=== PATIENT | male | born 1960 | race Caucasian/White ===

== ENCOUNTER → 2024-07-17 | Outpatient (CLI) | payer OTHER, SELFPAY ==
--- NOTE | 2024-07-17 07:52 | US_ITS ---
PROCEDURE: ABDOMEN COMPLETE REASON FOR EXAM: Hyperbilirubinemia. PROCEDURE: The liver measures 18.4 cm with increased echogenicity. Hepatopetal flow. The gallbladder is within normal limits. Negative sonographic Sparrow sign. The common bile duct lesly sures 4 mm. The visualized pancreas is within normal limits. The right kidney measures 12.9 cm. Moderate to severe hydronephrosis. Normal echogenicity. Right k idney 1.6 x 1.7 x 1.2 cm simple cyst. The left kidney measures 12.6 cm. Moderate to severe hydronephrosis. Normal echogenicity. The spleen measures 12.6 cm. The aorta and IVC are unremarkable. US/Abdomen Complete IMPRESSION: Moderate to severe bilateral hydronephrosis. Right kidney simple cyst. Hepatomegaly and hepatic steatosis. Borderline splenomegaly. Reading Location: [id number]
== END | disposition home or self-care (01) ==
PROVIDERS: PCP Family Medicine Geriatric Medicine; Referring Provider Family Medicine Geriatric Medicine; Visit Provider Family Medicine Geriatric Medicine
DX: E80.6 Other disorders of bilirubin metabolism (principal)
CPT/HCPCS: 76700

== ENCOUNTER → 2024-07-25 | Outpatient (CLI) | payer OTHER, SELFPAY ==
[2024-07-25 15:29] LABS: Anion Gap 7 (5-15); BUN 41 mg/dL (7-18); BUN/Creat Ratio 20.4 RATIO (10-20); Calcium,Total 9.4 mg/dL (8.5-10.1); Chloride 105 mmol/L (98-107); Creatinine, Serum 2.01 mg/dL (0.70-1.30); EST Glomerular Filtration Rate 36 mL/min (>60); Est Glom Filt Rate - Afr Amer 43 mL/min (>60); Glucose 324 mg/dL (74-106); Potassium 4.4 mmol/L (3.5-5.1); Sodium Level 138 mmol/L (136-145)
[2024-07-25 16:42] LABS: Hemoglobin A1c 8.8 % (3.8-5.6)
== END | disposition home or self-care (01) ==
LOC: POLAB3 14:30
PROVIDERS: PCP Family Medicine Geriatric Medicine; Visit Provider Family Medicine Geriatric Medicine
DX: E11.22 Type 2 diabetes mellitus with diabetic chronic kidney disease (principal); I10 Essential (primary) hypertension
CPT/HCPCS: 36415; 80048; 83036

== ENCOUNTER → 2024-08-02 | Outpatient (CLI) | payer OTHER, MEDICAID, SELFPAY ==
--- NOTE | 2024-08-02 09:48 | US_ITS ---
EXAM: ELASTOGRAPHY PARENCHYMA/ORGAN CLINICAL HISTORY: Fatty infiltration of the liver. COMPARISON: Comparison is made with prior study dated July 17, 2024. TECHNIQUE: Elastography was performed. FINDINGS: The mean kilobase Jesse is 9.1. The velocity is 1.74 m/sec. US/Elastography Parenchyma/Organ IMPRESSION: F2/F 3. Reading Location: [id number]
== END | disposition home or self-care (01) ==
LOC: US 09:47
PROVIDERS: PCP Family Medicine Geriatric Medicine; Referring Provider Family Medicine Geriatric Medicine; Visit Provider Family Medicine Geriatric Medicine
DX: K76.0 Fatty (change of) liver, not elsewhere classified (principal); N13.30 Unspecified hydronephrosis
CPT/HCPCS: 76981

== ENCOUNTER → 2024-08-13 | Outpatient (CLI) | payer OTHER, MEDICAID, SELFPAY ==
--- NOTE | 2024-08-13 16:33 | CT_ITS ---
PROCEDURE: ABDOMEN/PELVIS WITHOUT CONT REASON FOR EXAM: Bilateral hydronephrosis. TECHNIQUE: Abdomen and pelvis CT without intravenous contrast. COMPARISON: 07/17/2024 ultrasound. FINDINGS: Lung bases: Clear Liver: Unremarkable. Gallbladder: Contracted gallbladder. Spleen: Unremarkable. Pancreas: Unremarkable. Adrenals: Unremarkable. Kidneys: Severe bilateral hydroureteronephrosis. Bladder: Concentric urinary bladder wall thickening. Reproductive Organs: Unremarkable. Bowel: Unremarkable. Appendix: Normal. Lymph nodes: No suspicious lymph node enlargement. Vasculature: Mild atherosclerosis. Normal caliber abdominal aorta. Peritoneum / Retroperitoneum: No ascites. No free air. Bones: Normal caliber large and small bowel. Dense colonic stool. CT/Abdomen/Pelvis without Cont IMPRESSION: Severe bilateral hydroureteronephrosis. No obstructing calculus or nephrolithi asis. Concentric urinary bladder wall thickening which may be due to detrusor muscle hypertrophy or neurogenic bladder. Dense colonic stool which may suggest constipation. One or more dose reduction techniques were used (e.g., Automated exposure contr ol, adjustment of the mA and/or kV according to patient size, use of iterative reconstruction technique). Reading Location: [place] [id number]
== END | disposition home or self-care (01) ==
LOC: CT 16:32
PROVIDERS: PCP Family Medicine Geriatric Medicine; Referring Provider Family Medicine Geriatric Medicine; Visit Provider Family Medicine Geriatric Medicine
DX: K76.0 Fatty (change of) liver, not elsewhere classified (principal); N13.30 Unspecified hydronephrosis
CPT/HCPCS: 74176

== ENCOUNTER → 2024-08-22 | Outpatient (CLI) | payer OTHER, MEDICAID, SELFPAY ==
--- NOTE | 2024-08-22 14:05 | RAD_ITS ---
PROCEDURE: ABD INC DECUB AND/OR ERECT REASON FOR EXAM: Fecal impaction TECHNIQUE: Supine and upright views of the abdomen. COMPARISON: CT of the abdomen and pelvis dated 08/13/2024 FINDINGS: Bowel gas pattern is normal. No evidence of bowel obstruction. No free air. No suspicious calcifications. The bones are unremarkable. RAD/Abd Inc Decub and/or Erect IMPRESSION: Nonobstructive bowel gas pattern. Reading Location: [id number]
[2024-08-22 14:13] LABS: Absolute Lymphocyte Count 1.45 X10^3/uL (0.83-4.51); Absolute Neutrophil Count 5.7 X10^3/uL (2.0-7.7); Basophil# 0.05 X10^3/uL; Basophil% 0.6 % (0-1); Eosinophil# 0.06 X10^3/uL; Eosinophils% 0.8 % (0-5); Hematocrit 37.3 % (40-54); Lymphocyte # 1.45 X10^3/ul (0.83-4.51); Lymphocyte % 18.7 % (19-41); Mean Corp Hgb Conc 34.9 g/dL (32-36); Mean Corpuscular Hgb 28.9 pg (27.0-32.0); Mean Corpuscular Volume 82.9 fL (80-94); Mean Platelet Vol. 8.9 fl (6.2-12.0); Monocyte# 0.47 X10^3/uL; Monocyte% 6.1 % (0-10); NRBC Flagged by Analyzer 0 % (0-5); Neutrophil # 5.69 X10^3/uL (2.7-7.7); Neutrophil % 73.4 % (47-70); Platelet Count 288 K/mm3 (150-450); RBC Distribution Width CV 12.4 % (11.6-14.6); RBC Distribution Width SD 37.1 fl (35.1-43.9); White Blood Count 7.8 K/mm3 (4.4-11.0)
[2024-08-22 14:43] LABS: ALB/GLOB Ratio 1.5 RATIO (0.9-2.4); AST(SGOT) 15 U/L (<=37); Alanine Aminotransfer ALT/SGPT 19 U/L (<=46); Albumin, Serum 4.3 g/dL (3.4-4.8); Alkaline Phosphatase 63 U/L (40-129); Anion Gap 13 (5-15); BUN 29 mg/dL (4-19); BUN/Creat Ratio 16.5 RATIO (10-20); Calcium,Total 9.8 mg/dL (7.6-11.0); Carbon Dioxide 23.8 mmol/L (21.0-32.0); Chloride 103 mmol/L (98-108); Creatinine, Serum 1.76 mg/dL (0.70-1.20); EST Glomerular Filtration Rate 43 (>60); Globulin 2.9 g/dL (2.2-4.2); Glucose 251 mg/dL (70-99); Potassium 4.1 mmol/L (3.3-5.1); Protein, Total 7.2 g/dL (5.9-8.4); Sodium Level 140 mmol/L (133-145); Total Bilirubin 0.97 mg/dL (0.00-1.30)
[2024-08-22 14:48] LABS: Hemoglobin A1c 11.3 % (<=5.6)
[2024-08-22 15:02] LABS: Cholesterol 194 mg/dL (<=200); High Density Lipoprotein 40 mg/dL; Low Density Lipoprotein Calc. 107 mg/dL; Triglycerides 232 mg/dL; Very Low Density Lipoprotein 46 mg/dL (5-40); cholesterol:hdl ratio screen 4.81
== END | disposition home or self-care (01) ==
LOC: LAB 13:49
PROVIDERS: PCP Family Medicine Geriatric Medicine; Referring Provider Family Medicine Geriatric Medicine; Visit Provider Family Medicine Geriatric Medicine
DX: K56.41 Fecal impaction (principal); E11.65 Type 2 diabetes mellitus with hyperglycemia; E78.5 Hyperlipidemia, unspecified; I10 Essential (primary) hypertension
CPT/HCPCS: 36415; 74019; 80053; 80061; 83036; 84443; 85025

== ENCOUNTER → 2024-08-29 | Outpatient (CLI) | payer OTHER, MEDICAID, SELFPAY ==
[2024-08-29 15:01] LABS: Absolute Lymphocyte Count 1.38 X10^3/uL (0.83-4.51); Absolute Neutrophil Count 5.8 X10^3/uL (2.0-7.7); Basophil# 0.05 X10^3/uL; Basophil% 0.6 % (0-1); Eosinophil# 0.07 X10^3/uL; Eosinophils% 0.9 % (0-5); Hematocrit 36.9 % (40-54); Hemoglobin 12.6 g/dL (13.0-16.5); Lymphocyte # 1.38 X10^3/ul (0.83-4.51); Lymphocyte % 17.6 % (19-41); Mean Corp Hgb Conc 34.1 g/dL (32-36); Mean Corpuscular Hgb 28.3 pg (27.0-32.0); Mean Corpuscular Volume 82.7 fL (80-94); Mean Platelet Vol. 9.3 fl (6.2-12.0); Monocyte# 0.48 X10^3/uL; Monocyte% 6.1 % (0-10); NRBC Flagged by Analyzer 0 % (0-5); Neutrophil # 5.84 X10^3/uL (2.7-7.7); Neutrophil % 74.3 % (47-70); Platelet Count 266 K/mm3 (150-450); RBC Distribution Width CV 12.3 % (11.6-14.6); RBC Distribution Width SD 37.1 fl (35.1-43.9); Red Blood Count 4.46 M/mm3 (4.6-6.2); White Blood Count 7.9 K/mm3 (4.4-11.0)
[2024-08-29 15:36] LABS: Anion Gap 16 (5-15); BUN 43 mg/dL (4-19); BUN/Creat Ratio 23.5 RATIO (10-20); Calcium,Total 9.4 mg/dL (7.6-11.0); Carbon Dioxide 21.8 mmol/L (21.0-32.0); Chloride 100 mmol/L (98-108); Creatinine, Serum 1.81 mg/dL (0.70-1.20); EST Glomerular Filtration Rate 41 (>60); Glucose 381 mg/dL (70-99); Potassium 4.2 mmol/L (3.3-5.1); Sodium Level 137 mmol/L (133-145)
[2024-08-29 19:39] LABS: Hemoglobin A1c 11.4 % (<=5.6)
== END | disposition home or self-care (01) ==
LOC: POLAB3 14:44
PROVIDERS: PCP Family Medicine Geriatric Medicine; Visit Provider Family Medicine Geriatric Medicine
DX: E11.65 Type 2 diabetes mellitus with hyperglycemia (principal); I10 Essential (primary) hypertension
CPT/HCPCS: 36415; 80048; 83036; 85025

== ENCOUNTER → 2024-09-19 | Outpatient (CLI) | payer OTHER, SELFPAY ==
[2024-09-19 12:13] LABS: Absolute Lymphocyte Count 1.62 X10^3/uL (0.83-4.51); Absolute Neutrophil Count 7.7 X10^3/uL (2.0-7.7); Basophil# 0.08 X10^3/uL; Basophil% 0.8 % (0-1); Eosinophil# 0.08 X10^3/uL; Eosinophils% 0.8 % (0-5); Hematocrit 38.5 % (40-54); Hemoglobin 13.3 g/dL (13.0-16.5); Lymphocyte # 1.62 X10^3/ul (0.83-4.51); Lymphocyte % 15.8 % (19-41); Mean Corp Hgb Conc 34.5 g/dL (32-36); Mean Corpuscular Hgb 28.6 pg (27.0-32.0); Mean Corpuscular Volume 82.8 fL (80-94); Mean Platelet Vol. 9.1 fl (6.2-12.0); Monocyte# 0.68 X10^3/uL; Monocyte% 6.6 % (0-10); NRBC Flagged by Analyzer 0 % (0-5); Neutrophil # 7.73 X10^3/uL (2.7-7.7); Neutrophil % 75.3 % (47-70); Platelet Count 289 K/mm3 (150-450); RBC Distribution Width CV 12.5 % (11.6-14.6); RBC Distribution Width SD 37.4 fl (35.1-43.9); Red Blood Count 4.65 M/mm3 (4.6-6.2); White Blood Count 10.3 K/mm3 (4.4-11.0)
[2024-09-19 14:13] LABS: ALB/GLOB Ratio 1.4 RATIO (0.9-2.4); AST(SGOT) 19 U/L (<=37); Alanine Aminotransfer ALT/SGPT 17 U/L (<=46); Albumin, Serum 4.4 g/dL (3.4-4.8); Alkaline Phosphatase 64 U/L (40-129); Anion Gap 16 (5-15); BUN 31 mg/dL (4-19); BUN/Creat Ratio 17.9 RATIO (10-20); Calcium,Total 9.5 mg/dL (7.6-11.0); Carbon Dioxide 19.5 mmol/L (21.0-32.0); Chloride 107 mmol/L (98-108); Cholesterol 172 mg/dL (<=200); Creatinine, Serum 1.73 mg/dL (0.70-1.20); EST Glomerular Filtration Rate 44 (>60); Globulin 3.2 g/dL (2.2-4.2); Glucose 142 mg/dL (70-99); High Density Lipoprotein 40 mg/dL; Low Density Lipoprotein Calc. 100 mg/dL; Potassium 3.6 mmol/L (3.3-5.1); Protein, Total 7.6 g/dL (5.9-8.4); Sodium Level 142 mmol/L (133-145); Total Bilirubin 1.06 mg/dL (0.00-1.30); Triglycerides 159 mg/dL; Very Low Density Lipoprotein 32 mg/dL (5-40)
[2024-09-19 18:18] LABS: Hemoglobin A1c 10.7 % (<=5.6)
== END | disposition home or self-care (01) ==
LOC: LAB 11:03
PROVIDERS: PCP Family Medicine Geriatric Medicine; Referring Provider Family Medicine Geriatric Medicine; Visit Provider Family Medicine Geriatric Medicine
DX: E11.65 Type 2 diabetes mellitus with hyperglycemia (principal); I10 Essential (primary) hypertension; E78.5 Hyperlipidemia, unspecified
CPT/HCPCS: 36415; 80053; 80061; 83036; 84443; 85025

== ENCOUNTER → 2024-09-19 | Outpatient (CLI) | payer OTHER, SELFPAY ==
[2024-09-19 19:07] LABS: Microalbumin,Random Urine 75.6 mg/L (NO RANGE EST.); Microalbumin:Creatinine Ratio 801.7 mg/g CRE
== END | disposition home or self-care (01) ==
PROVIDERS: PCP Family Medicine Geriatric Medicine; Referring Provider Internal Medicine Nephrology; Visit Provider Internal Medicine Nephrology
DX: N18.32 Chronic kidney disease, stage 3b (principal)
CPT/HCPCS: 82043; 82570

== ENCOUNTER → 2024-12-17 | Outpatient (CLI) | payer OTHER, SELFPAY ==
[2024-12-17 12:58] LABS: Hematocrit 35.7 % (40-54); Hemoglobin 11.9 g/dL (13.0-16.5); Immature Granulocytes Count 0.040 X10^3/uL (0.0-0.0); Mean Corp Hgb Conc 33.3 g/dL (32-36); Mean Corpuscular Volume 83.6 fL (80-94); Mean Platelet Vol. 9.1 fl (6.2-12.0); NRBC Flagged by Analyzer 0 % (0-5); Platelet Count 323 K/mm3 (150-450); RBC Distribution Width CV 13.0 % (11.6-14.6); RBC Distribution Width SD 38.9 fl (35.1-43.9); Red Blood Count 4.27 M/mm3 (4.6-6.2); White Blood Count 9.2 K/mm3 (4.4-11.0)
[2024-12-17 13:58] LABS: AST(SGOT) 15 U/L (<=37); Alanine Aminotransfer ALT/SGPT 15 U/L (<=46); Albumin, Serum 4.1 g/dL (3.4-4.8); Alkaline Phosphatase 62 U/L (40-129); Anion Gap 13 (5-15); BUN 27 mg/dL (4-19); BUN/Creat Ratio 16.0 RATIO (10-20); Calcium,Total 8.8 mg/dL (7.6-11.0); Carbon Dioxide 20.0 mmol/L (21.0-32.0); Chloride 109 mmol/L (98-108); Cholesterol 101 mg/dL (<=200); Globulin 2.8 g/dL (2.2-4.2); Glucose 113 mg/dL (70-99); Low Density Lipoprotein Calc. 46 mg/dL; Potassium 4.2 mmol/L (3.3-5.1); Triglycerides 132 mg/dL; Very Low Density Lipoprotein 26 mg/dL (5-40); cholesterol:hdl ratio screen 3.49
== END | disposition home or self-care (01) ==
LOC: LAB 11:35
PROVIDERS: PCP Family Medicine Geriatric Medicine; Referring Provider Family Medicine Geriatric Medicine; Visit Provider Family Medicine Geriatric Medicine
DX: E11.65 Type 2 diabetes mellitus with hyperglycemia (principal); I10 Essential (primary) hypertension; E78.5 Hyperlipidemia, unspecified
CPT/HCPCS: 36415; 80053; 80061; 83036; 84443; 85025

== ENCOUNTER → 2025-02-10 | Outpatient (CLI) | payer MEDICARE, SELFPAY | END | disposition home or self-care (01) | LOC: LAB 15:54 | PROVIDERS: PCP Family Medicine Geriatric Medicine; Referring Provider Family Medicine Geriatric Medicine; Visit Provider Family Medicine Geriatric Medicine | DX: E11.22 Type 2 diabetes mellitus with diabetic chronic kidney disease (principal) | CPT/HCPCS: 36415; 83036 ==

== ENCOUNTER 2025-02-18 14:22 | Outpatient (CLI) | payer MEDICARE, SELFPAY ==
[2025-02-18 14:38] LABS: Hematocrit 34.1 % (40-54); Hemoglobin 11.6 g/dL (13.0-16.5); Immature Granulocytes Count 0.050 X10^3/uL (0.0-0.0); Mean Corp Hgb Conc 34.0 g/dL (32-36); Mean Corpuscular Volume 83.4 fL (80-94); Mean Platelet Vol. 9.1 fl (6.2-12.0); NRBC Flagged by Analyzer 0 % (0-5); Platelet Count 319 K/mm3 (150-450); RBC Distribution Width CV 13.2 % (11.6-14.6); RBC Distribution Width SD 40.0 fl (35.1-43.9); Red Blood Count 4.09 M/mm3 (4.6-6.2); White Blood Count 9.4 K/mm3 (4.4-11.0)
[2025-02-18 15:25] LABS: AST(SGOT) 12 U/L (<=37); Alanine Aminotransfer ALT/SGPT 13 U/L (<=46); Albumin, Serum 4.1 g/dL (3.4-4.8); Alkaline Phosphatase 69 U/L (40-129); Anion Gap 11 (5-15); BUN 30 mg/dL (4-19); BUN/Creat Ratio 19.8 RATIO (10-20); Calcium,Total 9.1 mg/dL (7.6-11.0); Carbon Dioxide 22.6 mmol/L (21.0-32.0); Chloride 104 mmol/L (98-108); Globulin 2.8 g/dL (2.2-4.2); Glucose 278 mg/dL (70-99); Potassium 4.8 mmol/L (3.3-5.1); Vitamin D,25 Hydroxy 28.1 ng/mL (30-100)
[2025-02-18 22:28] LABS: Xtra Tube Kwok EXTRA TUBE
== END 2025-02-18 23:59 | disposition home or self-care (01) ==
LOC: POLAB3 14:26
PROVIDERS: PCP Family Medicine Geriatric Medicine; Visit Provider Family Medicine Geriatric Medicine
DX: I10 Essential (primary) hypertension (principal); E03.9 Hypothyroidism, unspecified; E55.9 Vitamin D deficiency, unspecified
CPT/HCPCS: 36415; 80053; 82306; 84443; 85025

== ENCOUNTER → 2025-04-08 | Outpatient (CLI) | payer MEDICARE, SELFPAY ==
--- NOTE | 2025-04-08 08:50 | AAAS_ITS ---
Reason For Study Reason For Study: Screening Aorta Measurements Aorta Doppler Measurements Proximal aorta measures2.21 x 2.2cm. in cross-sectional Peak systolic flow velocities within the proximal aorta axis. measure 70.5 cm/sec. Proximal aorta measures2.2cm. in longitudinal axis. Peak systolic flow velocities within the mid aorta measure Mid aorta measures1.76 x 1.74cm. in cross-sectional axis. 108.6 cm/sec. Mid aorta measures1.75cm. in longitudinal axis. Peak systolic flow velocities within the distal aorta Distal aorta measures1.55 x 1.57cm. in cross-sectional axis.measure 88.6 cm/sec. Distal aorta measures1.56cm. in longitudinal axis. Left Iliac Artery Left iliac artery measures 1.06 x 1.06 cm. in the cross-sectional axis. Left iliac artery measures 1.07 cm. in the longitudinal axis. Peak systolic velocity in the left iliac artery measures 88.6 cm/sec. Right Iliac Artery Right iliac artery measures 1.02 x 1.02 cm. in the cross-sectional axis. Right iliac artery measures 1.01 cm. in the longitudinal axis. Peak systolic velocity in the right iliac artery measures 124.9 cm/sec. Procedure Aorta IVC Iliac vasculature or bypass grafts [id number]. Exam performed in department. VL/AAA Screening Interpretation Summary The dimensions of the intra-abdominal aorta are normal, without evidence of ane urysmal dilatation. The iliac arteries are also normal in caliber bilaterally. The intra-abdominal aorta and iliac art eries appear patent, demonstrating normal, pulsatile arterial flow and normal peak systolic velocities. Ordering Physician: Pierre Hopkins Chi Referring Physician: Pierre Hopkins Chi Performed By: Frannie Rowell RVT
== END | disposition home or self-care (01) ==
LOC: CVS 08:50
PROVIDERS: PCP Family Medicine Geriatric Medicine; Referring Provider Family Medicine Geriatric Medicine; Visit Provider Family Medicine Geriatric Medicine
DX: I71.40 Abdominal aortic aneurysm, without rupture, unspecified (principal); F17.210 Nicotine dependence, cigarettes, uncomplicated; Z13.89 Encounter for screening for other disorder
CPT/HCPCS: 76706

== ENCOUNTER → 2025-05-19 | Outpatient (CLI) | payer MEDICARE, SELFPAY ==
[2025-05-19 12:03] LABS: Hematocrit 38.6 % (40-54); Hemoglobin 13.2 g/dL (13.0-16.5); Immature Granulocytes Count 0.020 X10^3/uL (0.0-0.0); Mean Corp Hgb Conc 34.2 g/dL (32-36); Mean Corpuscular Volume 83.2 fL (80-94); Mean Platelet Vol. 8.8 fl (6.2-12.0); NRBC Flagged by Analyzer 0 % (0-5); Platelet Count 303 K/mm3 (150-450); RBC Distribution Width CV 13.4 % (11.6-14.6); RBC Distribution Width SD 40.3 fl (35.1-43.9); Red Blood Count 4.64 M/mm3 (4.6-6.2); White Blood Count 7.5 K/mm3 (4.4-11.0)
[2025-05-19 12:51] LABS: AST(SGOT) 16 U/L (<=37); Alanine Aminotransfer ALT/SGPT 16 U/L (<=46); Albumin, Serum 4.2 g/dL (3.4-4.8); Alkaline Phosphatase 72 U/L (40-129); Anion Gap 12 (5-15); BUN 34 mg/dL (4-19); BUN/Creat Ratio 20.5 RATIO (10-20); Calcium,Total 9.2 mg/dL (7.6-11.0); Carbon Dioxide 24.1 mmol/L (21.0-32.0); Chloride 103 mmol/L (98-108); Globulin 3.0 g/dL (2.2-4.2); Glucose 214 mg/dL (70-99); Potassium 3.9 mmol/L (3.3-5.1); Vitamin D,25 Hydroxy 26.3 ng/mL (30-100)
[2025-05-19 19:48] LABS: Xtra Tube Kwok EXTRA TUBE
== END | disposition home or self-care (01) ==
LOC: POLAB3 11:47
PROVIDERS: PCP Family Medicine Geriatric Medicine; Visit Provider Family Medicine Geriatric Medicine
DX: E03.9 Hypothyroidism, unspecified (principal); E11.65 Type 2 diabetes mellitus with hyperglycemia; E11.22 Type 2 diabetes mellitus with diabetic chronic kidney disease; N18.31 Chronic kidney disease, stage 3a; E55.9 Vitamin D deficiency, unspecified; I12.9 Hypertensive chronic kidney disease with stage 1 through stage 4 chronic kidney disease, or unspecified chronic kidney disease
CPT/HCPCS: 36415; 80053; 82306; 84443; 85025